=== PATIENT | female | born 1980 | race Caucasian/White ===

== ENCOUNTER 2023-03-22 14:48 | Emergency (ER) | payer OTHER, SELFPAY ==
[~2023-03-22] VITALS: Ht 177.8 cm; Wt 52.3 kg
[2023-03-22 14:49] VITALS: BP 133/77; TEMP 98.3; O2SAT 100
[2023-03-22 16:50] LABS: EOS % 0.2 % (0.0-3.0); HEMATOCRIT 41.5 % (36.0-47.0); HEMOGLOBIN 13.4 g/dl (12.0-15.5); LYMPH % 23.6 % (24.0-44.0); MEAN CORPUSCULAR HEMOGLOBIN 24.3 pg (27.0-33.0); MEAN CORPUSCULAR HGB CONC 32.3 g/dl (32.0-36.5); MEAN CORPUSCULAR VOLUME 75.2 fl (80.0-96.0); MONO # 0.2 10^3/uL (0.0-0.8); MONO % 4.8 % (2.0-8.0); NEUTROPHILS # 3.1 10^3/uL (1.5-8.5); NEUTROPHILS % 71.2 % (36.0-66.0); RED BLOOD COUNT 5.52 10^6/uL (4.00-5.40); WHITE BLOOD COUNT 4.4 10^3/uL (4.0-10.0)
[2023-03-22 17:18] LABS: LIPASE 25 U/L (12-53)
[2023-03-22 17:20] LABS: ALBUMIN 3.3 G/DL (3.2-5.2); ALKALINE PHOSPHATASE 117 U/L (46-116); ALT/SGPT 12 U/L (7.0-40); AST/SGOT 19 U/L (<34); BILIRUBIN,DIRECT 0.3 MG/DL (<0.4); BILIRUBIN,TOTAL 0.8 MG/DL (0.3-1.2); BLOOD UREA NITROGEN 6 MG/DL (9-23); CALCIUM LEVEL 9.3 MG/DL (8.5-10.1); CARBON DIOXIDE LEVEL 25 MMOL/L (20-31); CHLORIDE LEVEL 105 MMOL/L (98-107); CREATININE FOR GFR 0.58 MG/DL (0.55-1.30); GLOMERULAR FILTRATION RATE > 60.0 (>58); GLUCOSE, FASTING 99 MG/DL (60-100); SODIUM LEVEL 142 MMOL/L (136-145); TOTAL PROTEIN 7.1 G/DL (5.7-8.2)
[2023-03-22] MEDS ORDERED: LORazepam 2 MG/ML 1ML VIAL IV STA (17:26)
[2023-03-22 19:57] LABS: HCG, SERUM QUANTITATIVE 2.6 MIU/ML (<4.2)
[2023-03-23] MEDS ORDERED: ONDA4TAB6 PO (02:39)
[2023-03-23] MEDS ORDERED: CLONI1TA PO (02:39)
[2023-03-23] MEDS ORDERED: RALT40TA PO (15:58)
[2023-03-23] MEDS ORDERED: EMTR1TAB16 PO (15:58)
== END 2023-03-22 18:16 | disposition home or self-care (01) ==
LOC: M ED 14:48
DX: R10.9 Unspecified abdominal pain (principal); Z53.9 Procedure and treatment not carried out, unspecified reason; F19.10 Other psychoactive substance abuse, uncomplicated

== ENCOUNTER 2023-03-22 18:58 | Emergency (ER) | payer OTHER ==
[~2023-03-22] VITALS: Ht 177.8 cm; Wt 58.2 kg
[2023-03-22] MEDS ORDERED: ONDANSETRON 4MG ORAL DISINTEGRATING TAB PO ONE (22:25)
[2023-03-22] MEDS ORDERED: cloNIDine 0.1MG TABLET PO ONE (23:00)
[2023-03-23] MEDS ORDERED: METOCLOPRAMIDE INJ 10MG/2ML VIAL IM ONE (00:10)
[2023-03-23] MEDS ORDERED: cloNIDine 0.1MG TABLET PO ONE (00:10)
[2023-03-23 01:50] VITALS: BP 133/70
[2023-03-23 01:52] VITALS: BP 133/70; TEMP 98.3; O2SAT 100
[2023-03-23] MEDS ORDERED: CLONI1TA PO (02:39)
[2023-03-23] MEDS ORDERED: ONDA4TAB6 PO (02:39)
[2023-03-23] MEDS ORDERED: EMTR1TAB16 PO (15:58)
[2023-03-23] MEDS ORDERED: RALT40TA PO (15:58)
== END 2023-03-23 03:03 | disposition home or self-care (01) ==
LOC: M ED 18:58
DX: F11.13 Opioid abuse with withdrawal (principal); F41.9 Anxiety disorder, unspecified
CPT/HCPCS: 96372; 99284; J2765

== ENCOUNTER 2023-03-23 13:25 | Emergency (ER) | payer OTHER, SELFPAY ==
[~2023-03-23] VITALS: Ht 177.8 cm; Wt 50.0 kg
[~2023-03-23 13:25] MED LIST: CLONI1TA PO; ONDA4TAB6 PO; RALTEGRAVIR 400 MG TAB (ISENTRESS) PO SCH; TRUVADA 200MG/300MG TABLET PO SCH
[2023-03-23] MEDS ORDERED: KETOROLAC 30 MG/ML 1ML VIAL IM STA (13:39)
[2023-03-23] MEDS ORDERED: METOCLOPRAMIDE 10MG TAB PO ONE (13:40)
[2023-03-23 14:28] VITALS: BP 117/68
[2023-03-23 15:48] LABS: HCG, SERUM QUALITATIVE NEGATIVE (NEGATIVE)
[2023-03-23] MEDS ORDERED: RALT40TA PO (15:58)
[2023-03-23] MEDS ORDERED: EMTR1TAB16 PO (15:58)
[2023-03-23] MEDS ORDERED: ULIPRISTAL ACETATE 30MG TAB (ELLA) PO ONE (16:00)
[2023-03-23] MEDS ORDERED: AZITHROMYCIN 250MG TABLET PO ONE (16:00)
[2023-03-23] MEDS ORDERED: cefTRIAXone 500MG VIAL IM ONE (16:00)
[2023-03-23] MEDS ORDERED: EXPOSURE KIT-ADULT 7 DAY SUPPLY PO ONE (16:00)
[2023-03-23] MEDS ORDERED: LIDOCAINE 1% SDV 5ML VIAL DILUENT ONE (16:00)
[2023-03-23] MEDS ORDERED: metroNIDAZOLE (FLAGYL) 500MG TABLET PO ONE (16:00)
[2023-03-23] MEDS ORDERED: RALTEGRAVIR 400 MG TAB (ISENTRESS) PO ONE (17:20)
[2023-03-23] MEDS ORDERED: TRUVADA 200MG/300MG TABLET PO ONE (17:20)
[2023-03-23 18:30] VITALS: BP 131/70; TEMP 97.2; O2SAT 100
== END 2023-03-23 18:30 | disposition short-term general hospital (02) ==
LOC: M ED 13:25
DX: F11.13 Opioid abuse with withdrawal (principal); F17.200 Nicotine dependence, unspecified, uncomplicated
CPT/HCPCS: 36415; 84703; 96372; 99284; J0696; J1885